=== PATIENT | male | born 1955 | race Caucasian/White ===

== ENCOUNTER 2021-11-11 14:28 | Outpatient (CLI) | payer MEDICARE ==
[2021-11-12 17:27] LABS: SARS-CoV-2 PCR by NAA Not Detected (NotDetected)
== END 2021-11-11 14:29 | disposition home or self-care (01) ==
LOC: CSHLAB 14:28
PROVIDERS: ATTEND Surgery
DX: Z20.822 Contact with and (suspected) exposure to COVID-19 (principal)
CPT/HCPCS: U0003; U0005

== ENCOUNTER 2021-11-16 09:22 | Outpatient (CLI) | payer MEDICARE | END 2021-11-16 09:23 | disposition home or self-care (01) | LOC: CSHRAD 09:22 | PROVIDERS: ATTEND Surgery | DX: K21.9 Gastro-esophageal reflux disease without esophagitis (principal); K22.89 Other specified disease of esophagus | CPT/HCPCS: 74220 ==